=== PATIENT | male | born 1935 | race Caucasian/White ===

== ENCOUNTER 2017-07-20 05:40 | Observation (INO) | payer MEDICARE ==
--- OUTSIDE RECORDS SUMMARY | 2017-07-18 09:18 | XMS REPORT | Clinical Summary ---
Author Author BEVERLY NeolinearSaint Alphons[facility] Medical CenterSeaMicro Plateau Medical [email or web address] County Public Hospital Address Unknown Phone Unavailable Care Team Providers Care Funeral Director'S Assistant Name Role Phone PCP Unavailable Allergies Active Allergy Reactions Severity Noted Date Comments Penicillins 06/29/2017 Per patient interview in pre-op holding area Current Medications Prescription Sig. Disp. Refills Start End Date Status Date atorvastatin (LIPITOR) 80 Take 80 mg by mouth Active MG tablet daily. clopidogrel (PLAVIX) 75 Take 75 mg by mouth Active mg tablet daily. dexlansoprazole 60 mg Take 60 mg by mouth Active capsule daily. metoprolol (TOPROL-XL) 25 Take 25 mg by mouth Active MG 24 hr tablet daily. tamsulosin (FLOMAX) 0.4 Take 0.4 mg by mouth Active mg Cp24 24 hr capsule daily. Active Problems Problem Noted Date Carotid artery stenosis 06/29/2017 Carotid stenosis 06/29/2017 Hypertension 06/29/2017 Hyperlipemia 06/29/2017 GERD (gastroesophageal reflux disease) 06/29/2017 BPH (benign prostatic hyperplasia) 06/29/2017 CAD (coronary artery disease) 06/29/2017 Encounters Date Type Specialty Care Team Description 06/29/2017 Hospital Cardiology Antonio Mcdonough, Essential - Encounter MD hypertension;Coronary 07/01/2017 artery disease of [place] artery of [place] heart with stable angina pectoris (HCC);Bilateral carotid artery stenosis;Other hyperlipidemia 06/29/2017 Anesthesia Vasu Vinson MD Event 06/29/2017 Procedure Pass 06/29/2017 Surgery Antonio Mcdonough, ENDARTERECTOMY,CAROTID MD 06/28/2017 Orders Only Transplant Jennifer Alvarez RN after 07/17/2016 Social History Tobacco Use Types Packs/Day Years Used Date Never Smoker Smokeless Tobacco: Never Used Alcohol Use Drinks/Week oz/Week Comments Yes Sex Assigned at Date Recorded Not on file Last Filed Vital Signs Vital Sign Reading Time Taken Blood Pressure 117/56 07/01/2017 12:00 PM [facility] Pulse 71 07/01/2017 12:00 PM [facility] Temperature 37 C (98.6 F) 07/01/2017 12:00 PM [facility] Respiratory Rate 18 07/01/2017 12:00 PM [facility] Oxygen Saturation 96% 07/01/2017 12:00 PM [facility] Inhaled Oxygen - - Concentration Weight 65.1 kg (143 lb 8 oz) 06/30/2017 4:26 AM [facility] Height 175.3 cm (5' 9") 06/29/2017 5:42 AM [facility] Body Mass Index 21.19 06/30/2017 4:26 AM [facility] Plan of Treatment Not on file Implants Implanted Type Area Brand Ambassador Promotional Model Device Expiration Model / Identifier Date Serial / Lot Grft Hemshld Dbl Roberto 0.3x3.0in Graft/Patc Right: GETINGE 07/11/2021 [id number] - [id number] h Neck IND:MAQUET:CV 090 / Implanted: Qty: 1 on 06/29/2017 by [id number] Antonio Mcdonough MD / [id number] Procedures Procedure Name Priority Date/Time Associated Diagnosis Comments ENDARTERECTOMY,CAROTID 06/29/2017 Stenosis of carotid 8:02 AM [facility] artery, unspecified laterality Special Needs (NEURO-MON ITORING:EE G) after 07/17/2016 Results * RHYTHM STRIP - SCAN (07/04/2017 8:52 AM) * CBC (Hemogram only) (07/01/2017 5:37 AM) Only the most recent of 2 results within the time period is included. Component Value Ref Range WBC 6.5 3.5 - 10.5 K/ L RBC 3.66 (L) 4.63 - 6.08 M/ L Hemoglobin 10.7 (L) 13.7 - 17.5 GM/DL Hematocrit 34.6 (L) 40.1 - 51.0 % MCV 94.5 (H) 79.0 - 92.2 fL MCH 29.2 25.7 - 32.2 pg MCHC 30.9 (L) 32.3 - 36.5 GM/DL RDW 14.6 (H) 11.6 - 14.4 % Platelets 161 150 - 450 K/CU MM MPV 10.7 9.4 - 12.4 fL nRBC 0 0 - 0 /100 WBC Specimen Performing Laboratory Blood - Arm, [place] [address] * Magnesium (07/01/2017 5:37 AM) Only the most recent of 2 results within the time period is included. Component Value Ref Range Magnesium 1.8 1.6 - 2.6 mg/dL Specimen Performing Laboratory Blood - Arm, [place] [address] * Basic Metabolic Panel (07/01/2017 5:37 AM) Only the most recent of 3 results within the time period is included. Component Value Ref Range Sodium 139 136 - 145 meq/L Potassium 3.9 3.5 - 5.1 meq/L Chloride 107 98 - 107 meq/L CO2 23 22 - 29 meq/L BUN 15 7 - 21 mg/dL Creatinine 1.13 0.57 - 1.25 mg/dL Glucose 102 70 - 105 mg/dL Calcium 8.6 8.4 - 10.2 mg/dL EGFR 62Comment: ESTIMATED GFR IS NOT ACCURATE mL/min/1.73 sq m CREATININE CLEARANCE IN PREDICTING GLOMERULAR FILTRATION RATE. ESTIMATED GFR IS NOT APPLICABLE FOR DIALYSIS PATIENTS. Specimen Performing Laboratory Blood - [place], [place] [address] * TRANSFUSION SERVICE REPORT - SCAN (06/30/2017 5:41 PM) * POC-Glucose meter (06/29/2017 9:33 PM) Component Value Ref Range POC-Glucose Meter 127 (H)Comment: TESTED AT [address] 70 - 110 mg /dL [place] [address] Specimen [place] [address] * SHORT LATENCY SEP ALL LIMBS (06/29/2017 10:30 AM) Specimen Performing Laboratory GE RIS Narrative INTRAOPERATIVE MONITORING REPORT Patient Name:Troy Escalona [facility] Surgery Date: 2017 [place] S/N: [id number] Monitoring began at8:10 and ended at 10:30 Surgeon:Antonio Mcdonough M.D. Examining Neurologist:Dario Ross M.D. Monitoring Technologist:MONIE Cee Procedure:Right Carotid Endarterectomy Stimulation Parameters:Ulnar nerves individually stimulated at the wrist Rate 4.7Hz, Intensity 30mA, Duration 0.3ms Filters 30-500Hz, Notch Off Posterior Tibial nerves individually stimulated at the ankle Rate 4.7Hz, Intensity 60mA, Duration 0.3ms Filters 30-500Hz, Notch Off Recording Parameters: C3, C4, CPZ, T3, T4, FP1 and FP2 referenced to FPz Free-running EEG recorded with bipolar derivation, using modified International 10/20 placements:F7-T3,T3-T5, F3-CP3, CP3-P3, F4-CP4, CP4-P4, F8-T4 and T4-T6 Description:Intraoperative neurophysiological monitoring was performed using a combination ofupper and lower extremity somatosensory evoked potentials, and free-running EEG.A real-time connection with the examining neurologist was established and maintained throughout the operative procedure by the monitoring technologist. Upper extremity somatosensory evoked potentials were recorded peripherally at the cortical levels following median nerve stimulation at the wrist. Lower extremity somatosensory evoked potentials were recorded centrally at the cortical level following posterior tibial nerve stimulation at the ankle.No significant surgically related changes in amplitude or latency of the somatosensory evoked responses were noted throughout the surgical procedure. The EEG at baseline was predominantly alpha frequency, symmetric and well-organized. There was no focal slowing. No epileptiform discharges or seizures were recorded. Intraoperatively, there was one instance where the cross-clamp was placed: there was no change from baseline when the clamp was placed nor when the clamp was removed. At closing, free-running EEG remained symmetrical and at baseline frequencies with no focal changes noted to occur throughout the operative procedure. Dario Ross M.D. I65.23 Procedure Note Interface, External Ris In - 07/02/2017 5:56 PM [facility] INTRAOPERATIVE MONITORING REPORT Patient Name: Troy Escalona [facility] Surgery Date: June 29, 2017 [employer] S/N: [id number] Monitoring began at 8:10 and ended at 10:30 Surgeon: Antonio Mcdonough M.D. Examining Neurologist: Dario Ross M.D. Monitoring Technologist: MONIE Cee Procedure: Right Carotid Endarterectomy Stimulation Parameters: Ulnar nerves individually stimulated at the wrist Rate 4.7Hz, Intensity 30mA, Duration 0.3ms Filters 30-500Hz, Notch Off Posterior Tibial nerves individually stimulated at the ankle Rate 4.7Hz, Intensity 60mA, Duration 0.3ms Filters 30-500Hz, Notch Off Recording Parameters: C3, C4, CPZ, T3, T4, FP1 and FP2 referenced to FPz Free-running EEG recorded with bipolar derivation, using modified International 10/20 placements: F7-T3,T3-T5, F3-CP3, CP3-P3, F4-CP4, CP4-P4, F8-T4 and T4-T6 Description: Intraoperative neurophysiological monitoring was performed using a combination of upper and lower extremity somatosensory evoked potentials, and free-running EEG. A real-time connection with the examining neurologist was established and maintained throughout the operative procedure by the monitoring technologist. Upper extremity somatosensory evoked potentials were recorded peripherally at the cortical levels following median nerve stimulation at the wrist. Lower extremity somatosensory evoked potentials were recorded centrally at the cortical level following posterior tibial nerve stimulation at the ankle. No significant surgically related changes in amplitude or latency of the somatosensory evoked responses were noted throughout the surgical procedure. The EEG at baseline was predominantly alpha frequency, symmetric and well-organized. There was no focal slowing. No epileptiform discharges or seizures were recorded. Intraoperatively, there was one instance where the cross-clamp was placed: there was no change from baseline when the clamp was placed nor when the clamp was removed. At closing, free-running EEG remained symmetrical and at baseline frequencies with no focal changes noted to occur throughout the operative procedure. Dario Ross M.D. I65.23 * Tissue Exam (06/29/2017 9:37 AM) Component Value Ref Range Case Report Surgical Pathology Report Case: [id number] Authorizing Provider: Antonio Mcdonough, Collected: 06/29/2017 0937 Ordering Location: [facility] Received: 06/29/2017 1039 PERIOPERATIVE SERVICES Pathologist: Jacob Ochoa MD Specimen: Plaque, right carotid plaque DIAGNOSIS ARTERY, RIGHT CAROTID, ENDARTERECTOMY: CALCIFIC ATHEROSCLEROTIC PLAQUE WITH FOCAL BONY METAPLASIA Signing Pathologist Direct Phone Line: [phone] CPT Code(s) 37931; 86853 CLINICAL HISTORY Stenosis of carotid artery SPECIMEN SOURCE Right carotid plaque GROSS DESCRIPTION In saline labeled "plaque", description "right carotid plaque" are four irregular barboza-white to yellow-snyder rubbery portions of calcified fibrous tissue measuring 4.0 x 2.3 x 0.5 cm in aggregate. Activities Concierge sections are submitted in cassette A1 for decalcification. DB/pl MICROSCOPIC DESCRIPTION Performed Specimen Performing Laboratory [place] [address] * Electrocardiogram, 12-lead (06/29/2017 7:33 AM) Specimen Performing Laboratory GE MUSE Narrative Ventricular Rate 58 BPM Atrial Rate 58 BPM P-R Interval 176 ms QRS Duration 86 ms Q-T Interval 430 ms QTC Calculation(Bazett) 422 ms P [place] 77 degrees R [place] -19 degrees T [place] 14 degrees Sinus bradycardia Possible Anterior infarct , age undetermined Abnormal ECG No previous ECGs available Confirmed by MD SPEARS STEPHANIE A ([id number]) on 06/30/2017 8:02:14 PM Procedure Note Interface, External Ris In - 06/30/2017 8:02 PM [facility] Ventricular Rate 58 BPM Atrial Rate 58 BPM P-R Interval 176 ms QRS Duration 86 ms Q-T Interval 430 ms QTC Calculation(Bazett) 422 ms P [place] 77 degrees R [place] -19 degrees T [place] 14 degrees Sinus bradycardia Possible Anterior infarct , age undetermined Abnormal ECG No previous ECGs available Confirmed by MD SPEARS STEPHANIE A ([id number]) on 06/30/2017 8:02:14 PM * XR chest 1 view portable / bedside (06/29/2017 7:12 AM) Specimen Performing Laboratory GE RIS Narrative FINAL REPORT Chest one view Discussion: There are degenerative spine and shoulder changes. Lungs clear. Heart size normal. No effusion or pneumothorax. Signed: Michelle Guerrero MD Report Verified Date/Time:06/29/2017 07:29:07 Reading Location: [facility] Radiology Reading Room Procedure Note Interface, External Ris In - 06/29/2017 7:31 AM [facility] FINAL REPORT Chest one view Discussion: There are degenerative spine and shoulder changes. Lungs clear. Heart size normal. No effusion or pneumothorax. Signed: Michelle Guerrero MD Report Verified Date/Time: 06/29/2017 07:29:07 Reading Location: [facility] Radiology Reading Room * Type and screen, automated (06/29/2017 6:18 AM) Component Value Ref Range ABO/RH AUTOMATED (BEAKER) A NEGATIVE Ab Scrn NEGATIVE Specimen [place] [address] * CBC with platelet count + automated diff (06/29/2017 6:18 AM) Component Value Ref Range WBC 6.3 3.5 - 10.5 K/ L RBC 3.97 (L) 4.63 - 6.08 M/ L Hemoglobin 11.8 (L) 13.7 - 17.5 GM/DL Hematocrit 37.1 (L) 40.1 - 51.0 % MCV 93.5 (H) 79.0 - 92.2 fL MCH 29.7 25.7 - 32.2 pg MCHC 31.8 (L) 32.3 - 36.5 GM/DL RDW 14.2 11.6 - 14.4 % Platelets 185 150 - 450 K/CU MM MPV 10.0 9.4 - 12.4 fL nRBC 0 0 - 0 /100 WBC % Neutros 64 % % Lymphs 21 % % Monos 12 % % Eos 2 % % Baso 1 % # Neutros 4.08 1.78 - 5.38 K/ L # Lymphs 1.32 1.32 - 3.57 K/ L # Monos 0.76 0.30 - 0.82 K/ L # Eos 0.10 0.04 - 0.54 K/ L # Baso 0.05 0.01 - 0.08 K/ L Immature 0 0 - 1 % Granulocytes-Relative Specimen Performing Laboratory Blood [address] [address] * Prothrombin time/INR (06/29/2017 6:18 AM) Component Value Ref Range Protime 14.4 11.7 - 14.7 seconds INR 1.1 <=5.9 Specimen Performing Laboratory Blood [address] [address] Narrative RECOMMENDED COUMADIN/WARFARIN INR THERAPY RANGES STANDARD DOSE: 2.0 - 3.0 Includes: PROPHYLAXIS for venous thrombosis, systemic embolization; TREATMENT for venous thrombosis and/or pulmonary embolus. HIGH RISK: Target INR is 2.5-3.5 for patients with mechanical heart valves. * CBC with platelet count + automated diff (06/29/2017 6:18 AM) Specimen Performing Laboratory Blood Narrative The following orders were created for panel order CBC with platelet count + automated diff. Procedure Abnormality Status --------- - ------ CBC with platelet count ...[[id number]]AbnormalFinal result Please view results for these tests on the individual orders. after 07/17/2016
--- OUTSIDE RECORDS SUMMARY | 2017-07-18 09:18 | XMS REPORT ---
Author Author [facility] Address Unknown Phone Unavailable Care Team Providers Care Cafe Or Restaurant Manager Name Role Phone DANK CORTES Unavailable Unavailable Problems This patient has no known problems. Allergies, Adverse Reactions, Alerts This patient has no known allergies or adverse reactions. Medications This patient has no known medications. Results Test Description Test Time Test Comments Text Results Atomic Results Result Comments TISSUE EXAM 2017-07-03 13:46:00 Surgical Pathology Report Case: [id number] Authorizing Provider: Dank Cortes, Collected: 06/29/2017 0937 Ordering Location: [facility] Received: 06/29/2017 1039 PERIOPERATIVE SERVICES Pathologist: Jacob Ochoa MD Specimen : Plaque, right carotid plaque ARTERY, RIGHT CAROTID, ENDARTERECTOMY:CALCIFIC ATHEROSCLEROTIC PLAQUE WITH FOCAL BONY METAPLASIA Signing Pathologist Direct Phone Line: [phone] signed by Jacob Ochoa MD on 07/03/2017 at 1:46 [id number]; [id number] of carotid arteryRight carotid plaqueIn saline labeled "plaque", description "right carotid plaque" are four irregular barboza-white to yellow-snyder rubbery portions of calcified fibrous tissue measuring 4.0 x 2.3 x 0.5 cm in aggregate. Transition Rn sections are submitted in cassette A1 for decalcification. DB/plPerformed SHORT-LATENCY SPE, ALL LIMBS 2017-07-02 17:56:00 INTRAOPERATIVE MONITORING REPORT Patient Name: Troy Escalona [facility] Surgery Date: June 29, 2017 [place] S/N : [id number] Monitoring began at 8:10 and ended at 10:30 Surgeon: Dank Cortes M.D. Examining Neurologist: Dario Ross M.D. Monitoring Technologist: MONIE Cee Procedure: Right Carotid Endarterectomy Stimulation Parameters: Ulnar nerves individually stimulated at the wrist Rate 4.7Hz, Intensity 30mA, Duration 0.3ms Filters 30-500Hz, Notch Off Posterior Tibial nerves individually stimulated at the ankle Rate 4.7Hz, Intensity 60mA, Duration 0.3ms Filters 30-500Hz, Notch Off Recording Parameters: C3, C4, CPZ , T3, T4, FP1 and FP2 referenced to FPz Free-running EEG recorded with bipolar derivation, using modified International 10/20 placements: F7-T3,T3-T5, F3-CP3 , CP3-P3, F4-CP4, CP4-P4, F8-T4 and T4-T6 Description: [...] the operative procedure. Dario Ross M.D. I65.23 ESIUM 2017-07-01 07:30:00 MAGNESIUM (BEAKER) (test vaju=540) 1.8 mg/dL 1.6-2.6 BASIC METABOLIC [id number] 07:30:00* Test Item Value Reference Range Comments SODIUM (BEAKER) (test nait=156) 139 meq/L 136-145 POTASSIUM (BEAKER) (test xziu=563) 3.9 meq/L 3.5-5.1 CHLORIDE (BEAKER) (test kxnt=903) 107 meq/L 98-107 CO2 (BEAKER) (test cxif=559) 23 meq/L 22-29 BLOOD UREA NITROGEN (BEAKER) (test kaqw=616) 15 mg/dL 7-21 CREATININE (BEAKER) (test qxvk=150) 1.13 mg/dL 0.57-1.25 GLUCOSE RANDOM (BEAKER) (test odrw=775) 102 mg/dL 70-105 CALCIUM (BEAKER) (test xqka=628) 8.6 mg/dL 8.4-10.2 EGFR (BEAKER) (test eqdo=4929) 62 mL/min/1.73 sq m ESTIMATED GFR IS NOT ACCURATE CREATININE CLEARANCE IN PREDICTING GLOMERULAR FILTRATION RATE. ESTIMATED GFR IS NOT APPLICABLE FOR DIALYSIS PATIENTS. CBC (HEMOGRAM ONLY)2017-07-01 06:36:00* Test Item Value Reference Range Comments WHITE BLOOD CELL COUNT (BEAKER) (test twqn=276) 6.5 K/ L 3.5-10.5 RED BLOOD CELL COUNT (BEAKER) (test xjjx=062) 3.66 M/ L 4.63-6.08 HEMOGLOBIN (BEAKER) (test ibil=406) 10.7 GM/DL 13.7-17.5 HEMATOCRIT (BEAKER) (test wjcb=478) 34.6 % 40.1-51.0 MEAN CORPUSCULAR VOLUME (BEAKER) (test prnn=385) 94.5 fL 79.0-92.2 MEAN CORPUSCULAR HEMOGLOBIN (BEAKER) (test wkhq=051) 29.2 pg 25.7-32.2 MEAN CORPUSCULAR HEMOGLOBIN CONC (BEAKER) (test iqsq=587) 30.9 GM/DL 32.3- 36.5 RED CELL DISTRIBUTION WIDTH (BEAKER) (test gjxa=225) 14.6 % 11.6-14.4 PLATELET COUNT (BEAKER) (test umuo=443) 161 K/CU MM 150-450 MEAN PLATELET VOLUME (BEAKER) (test qetl=351) 10.7 fL 9.4-12.4 NUCLEATED RED BLOOD CELLS (BEAKER) (test jaay=961) 0 /100 WBC 0-0 [id number] 05:54:00* Test Item Value Reference Range Comments MAGNESIUM (BEAKER) (test bwje=350) 1.7 mg/dL 1.6-2.6 BASIC METABOLIC [id number] 05:54:00* Test Item Value Reference Range Comments SODIUM (BEAKER) (test frwr=427) 140 meq/L 136-145 POTASSIUM (BEAKER) (test dzrz=720) 4.3 meq/L 3.5-5.1 CHLORIDE (BEAKER) (test bciq=397) 107 meq/L 98-107 CO2 (BEAKER) (test icgd=869) 26 meq/L 22-29 BLOOD UREA NITROGEN (BEAKER) (test yhug=933) 19 mg/dL 7-21 CREATININE (BEAKER) (test frjb=151) 1.23 mg/dL 0.57-1.25 GLUCOSE RANDOM (BEAKER) (test htar=347) 149 mg/dL 70-105 CALCIUM (BEAKER) (test xiiw=132) 8.7 mg/dL 8.4-10.2 EGFR (BEAKER) (test cqvc=5388) 56 mL/min/1.73 sq m ESTIMATED GFR IS NOT ACCURATE CREATININE CLEARANCE IN PREDICTING GLOMERULAR FILTRATION RATE. ESTIMATED GFR IS NOT APPLICABLE FOR DIALYSIS PATIENTS. CBC (HEMOGRAM ONLY)2017-06-30 05:12:00* Test Item Value Reference Range Comments WHITE BLOOD CELL COUNT (BEAKER) (test cvbj=925) 7.5 K/ L 3.5-10.5 RED BLOOD CELL COUNT (BEAKER) (test qslz=142) 4.15 M/ L 4.63-6.08 HEMOGLOBIN (BEAKER) (test covc=610) 12.0 GM/DL 13.7-17.5 HEMATOCRIT (BEAKER) (test ltiu=076) 39.3 % 40.1-51.0 MEAN CORPUSCULAR VOLUME (BEAKER) (test dudt=498) 94.7 fL 79.0-92.2 MEAN CORPUSCULAR HEMOGLOBIN (BEAKER) (test jykp=780) 28.9 pg 25.7-32.2 MEAN CORPUSCULAR HEMOGLOBIN CONC (BEAKER) (test come=027) 30.5 GM/DL 32.3- 36.5 RED CELL DISTRIBUTION WIDTH (BEAKER) (test wimd=254) 14.4 % 11.6-14.4 PLATELET COUNT (BEAKER) (test clje=799) 184 K/CU MM 150-450 MEAN PLATELET VOLUME (BEAKER) (test qzch=028) 10.6 fL 9.4-12.4 NUCLEATED RED BLOOD CELLS (BEAKER) (test yldv=186) 0 /100 WBC 0-0 POCT-GLUCOSE [id number] 21:45:00* Test Item Value Reference Range Comments POC-GLUCOSE METER (BEAKER) (test pvfg=3100) 127 mg/dL 70-110 TESTED AT [facility] [address] [facility] [address] RAD, CHEST, 1 VIEW, NON [id number] 07:29:00Reason for exam:->cv pre opShould this be performed at the bedside?->YesFINAL REPORT Chest one view Discussion: There are degenerative spine and shoulder changes. Lungs clear. Heart size normal. No effusion or pneumothorax. Signed: Michelle Guerrero Verified Date/Time: 06/29/2017 07:29:07 Reading Location : [facility] Radiology Reading Room C METABOLIC [id number] 07:11:00* Test Item Value Reference Range Comments SODIUM (BEAKER) (test pbvx=221) 143 meq/L 136-145 POTASSIUM (BEAKER) (test qhco=443) 4.8 meq/L 3.5-5.1 CHLORIDE (BEAKER) (test oflr=370) 108 meq/L 98-107 CO2 (BEAKER) (test fthy=215) 27 meq/L 22-29 BLOOD UREA NITROGEN (BEAKER) (test lnmx=881) 19 mg/dL 7-21 CREATININE (BEAKER) (test bemv=205) 1.28 mg/dL 0.57-1.25 GLUCOSE RANDOM (BEAKER) (test uluh=552) 100 mg/dL 70-105 CALCIUM (BEAKER) (test qgaj=223) 9.1 mg/dL 8.4-10.2 EGFR (BEAKER) (test lehj=8313) 54 mL/min/1.73 sq m ESTIMATED GFR IS NOT ACCURATE CREATININE CLEARANCE IN PREDICTING GLOMERULAR FILTRATION RATE. ESTIMATED GFR IS NOT APPLICABLE FOR DIALYSIS PATIENTS. PROTHROMBIN TIME/[id number] 06:51:00* Test Item Value Reference Range Comments PROTIME (BEAKER) (test pfdq=771) 14.4 seconds 11.7-14.7 INR (BEAKER) (test zdvt=036) 1.1 <=5.9 RECOMMENDED COUMADIN/WARFARIN INR THERAPY RANGESSTANDARD DOSE: 2.0 - 3.0 Includes: PROPHYLAXIS for venous thrombosis, systemic embolization; TREATMENT for venous thrombosis and/or pulmonary embolus.HIGH RISK: Target INR is 2.5-3.5 for patients with mechanical heart valves.CBC W/PLT COUNT & AUTO [id number] 06:42:00* Test Item Value Reference Range Comments WHITE BLOOD CELL COUNT (BEAKER) (test cooe=481) 6.3 K/ L 3.5-10.5 RED BLOOD CELL COUNT (BEAKER) (test bswo=161) 3.97 M/ L 4.63-6.08 HEMOGLOBIN (BEAKER) (test mckw=527) 11.8 GM/DL 13.7-17.5 HEMATOCRIT (BEAKER) (test jqaj=887) 37.1 % 40.1-51.0 MEAN CORPUSCULAR VOLUME (BEAKER) (test vqat=418) 93.5 fL 79.0-92.2 MEAN CORPUSCULAR HEMOGLOBIN (BEAKER) (test aszh=568) 29.7 pg 25.7-32.2 MEAN CORPUSCULAR HEMOGLOBIN CONC (BEAKER) (test rcjz=395) 31.8 GM/DL 32.3- 36.5 RED CELL DISTRIBUTION WIDTH (BEAKER) (test uxzo=699) 14.2 % 11.6-14.4 PLATELET COUNT (BEAKER) (test vilf=797) 185 K/CU MM 150-450 MEAN PLATELET VOLUME (BEAKER) (test vgef=383) 10.0 fL 9.4-12.4 NUCLEATED RED BLOOD CELLS (BEAKER) (test eoei=305) 0 /100 WBC 0-0 NEUTROPHILS RELATIVE PERCENT (BEAKER) (test sdto=770) 64 % LYMPHOCYTES RELATIVE PERCENT (BEAKER) (test zcdb=083) 21 % MONOCYTES RELATIVE PERCENT (BEAKER) (test eekw=645) 12 % EOSINOPHILS RELATIVE PERCENT (BEAKER) (test kpud=186) 2 % BASOPHILS RELATIVE PERCENT (BEAKER) (test rias=952) 1 % NEUTROPHILS ABSOLUTE COUNT (BEAKER) (test egjt=009) 4.08 K/ L 1.78-5.38 LYMPHOCYTES ABSOLUTE COUNT (BEAKER) (test fkmt=574) 1.32 K/ L 1.32-3.57 MONOCYTES ABSOLUTE COUNT (BEAKER) (test zxfd=337) 0.76 K/ L 0.30-0.82 EOSINOPHILS ABSOLUTE COUNT (BEAKER) (test barh=854) 0.10 K/ L 0.04-0.54 BASOPHILS ABSOLUTE COUNT (BEAKER) (test sfjs=338) 0.05 K/ L 0.01-0.08 IMMATURE GRANULOCYTES-RELATIVE PERCENT (BEAKER) (test htct=9570) 0 % 0-1
[2017-07-18 10:42] LABS: BASOPHILS % 0.7 % (0.0-1.0); EOSINOPHILS # (AUTO) 0.1 (0.0-0.4); EOSINOPHILS % 2.3 % (0.0-6.0); HEMATOCRIT 36.1 % (38.2-49.6); HEMOGLOBIN 11.6 g/dL (14.0-18.0); LYMPHOCYTES # (AUTO) 1.4 (1.0-3.2); LYMPHOCYTES % 23.1 % (18.0-39.1); MEAN CORPUSCULAR HEMOGLOBIN 30.1 pg (28-32); MEAN CORPUSCULAR HGB CONC 32.1 g/dL (31-35); MEAN CORPUSCULAR VOLUME 93.5 fL (81-99); MONOCYTES # (AUTO) 0.8 (0.2-0.8); MONOCYTES % 13.1 % (4.4-11.3); NEUTROPHILS # (AUTO) 3.7 (2.1-6.9); NEUTROPHILS % 60.6 % (38.7-80.0); PLATELET COUNT 228 x10e3/uL (140-360); RED BLOOD COUNT 3.86 x10e6/uL (4.3-5.7); RED CELL DISTRIBUTION WIDTH 14.5 % (11.7-14.4)
[2017-07-18 10:52] LABS: INR 1.03; PROTHROMBIN TIME 12.7 seconds (11.9-14.5)
[2017-07-18 11:00] LABS: ALBUMIN 3.7 g/dL (3.5-5.0); ALBUMIN/GLOBULIN RATIO 1.3 (0.8-2.0); ANION GAP 13.1 mmol/L (8-16); CALCIUM 9.2 mg/dL (8.4-10.2); CHOL/HDL RATIO 2.7 (3.9-4.7); CREATININE, SERUM 1.25 mg/dL (0.72-1.25); POTASSIUM 5.1 mmol/L (3.5-5.1)
[~2017-07-20] VITALS: Ht 175.3 cm; Wt 65.8 kg
[2017-07-20] VITALS (7 sets, daily range): BP systolic 130–167; BP diastolic 48–79
[~2017-07-20 05:40] MED LIST: ASPIRIN81 MG PO; ATORVASTATIN CA20 MG PO; CLOPIDOGREL75 MG PO; DOXAZOSIN MESYLA2 MG PO; FERROUS SULFAT325 MG PO; FLOMAX0.4 MG PO; METOPROLOL SUCC25 MG PO; XANAX0.25 MG PO
[2017-07-20] MEDS ORDERED: IOPAMIDOL 370 MG/ML 200 ML INFUS..BTL INJ ONE ×2 (08:45→09:41)
[2017-07-20] MEDS ORDERED: LIDOCAINE HCL 2% LOCAL 20 ML VIAL ONE (08:45)
[2017-07-20] MEDS ORDERED: FENTANYL CITRATE/PF 100MCG/2 ML INJ ONE (08:45)
[2017-07-20] MEDS ORDERED: MIDAZOLAM HCL 2 MG/2 ML VIAL ONE (08:45)
[2017-07-20] MEDS ORDERED: SODIUM CHLORIDE 0.9% 1000ML 1,000 ML ONE (08:45)
[2017-07-20] MEDS ORDERED: HEPARIN SOD/SOD CHLORIDE 2,000 ML ONE (08:45)
[2017-07-20] MEDS ORDERED: ASPIRIN 325 MG TAB ONE (08:51)
[2017-07-20] MEDS ORDERED: BIVALIRUDIN 250 MG/VIAL IV ONE (09:29)
[2017-07-20] MEDS ORDERED: SODIUM CHLORIDE 0.9% 50ML 50 ML ONE (09:30)
[2017-07-20] MEDS ORDERED: CLOPIDOGREL BISULFATE 75 MG TAB ONE ×2 (09:40)
[2017-07-20] MEDS ORDERED: ATROPINE SULFATE 0.1 MG/ML 10ML SYR ONE (09:47)
[2017-07-20] MEDS ORDERED: SODIUM CHLORIDE 0.9% 1000ML 1,000 ML IV ONE (14:30)
[2017-07-20] MEDS ORDERED: METOPROLOL SUCCINATE 25 MG TAB XL PO SCH (21:00)
[2017-07-20] MEDS ORDERED: ATORVASTATIN 20 MG TAB PO SCH (21:00)
[2017-07-20] MEDS ORDERED: ATORVASTATIN 40 MG TAB PO SCH (21:00)
[2017-07-21] MEDS ORDERED: ASPIR 8181 MG (00:06)
[2017-07-21] MEDS ORDERED: LIPITOR20 MG (00:07)
[2017-07-21 04:41] VITALS: BP 124/67
[2017-07-21] MEDS ORDERED: CLOPIDOGREL BISULFATE 75 MG TAB PO SCH (09:00)
[2017-07-21] MEDS ORDERED: ASPIRIN 81 MG CHEW TAB PO SCH (09:00)
--- NOTE | 2017-08-21 13:31 | Discharge Summary ---
REASON FOR ADMISSION: Patient is status post RCA PCI, observation overnight. PROCEDURE PERFORMED: Right coronary artery drug-eluting stent percutaneous coronary intervention. CONDITION UPON DISCHARGE: Fair and improved. DISPOSITION: Discharged to home self-care with access site precautions. MEDICATIONS UPON DISCHARGE: Please see medication reconciliation form. ADMITTING DIAGNOSES 1. Coronary artery disease with stable angina pectoris. 2. Carotid artery disease, status post bilateral carotid endarterectomies. 3. Hypertension. 4. Dyslipidemia. 5. Paroxysmal atrial fibrillation. 6. Peripheral arterial disease. DISCHARGE DIAGNOSES 1. Coronary artery disease with stable angina pectoris. 2. Carotid artery disease, status post bilateral carotid endarterectomies. 3. Hypertension. 4. Dyslipidemia. 5. Paroxysmal atrial fibrillation. 6. Peripheral arterial disease. HOSPITALIZATION SUMMARY: The patient underwent staged elective RCA drug-eluting stent PCI with no complications. Postoperatively, the patient recovered well with no issues. Discharged home on medications as per EMR. Follow up with Robles Pinzon in 2 weeks post discharge. ROBLES JOVEL MD Job#: [id number]
--- NOTE | 2017-08-21 13:45 | Operative Report ---
DATE OF PROCEDURE: July 20, 2017 PROCEDURE INDICATION: RCA drug-eluting stent PCI for angina pectoris, CCS-III. PROCEDURE COMPLICATIONS: None. ESTIMATED BLOOD LOSS: Less than 15 mL. PROCEDURE SUMMARY: After consent was obtained, patient was prepped and draped in a sterile fashion and the right femoral site was locally infiltrated with 2% lidocaine. Access was obtained, and additional angiography was performed with a JL-4 and JR-4 6-Hungarian catheters to engage respectively the left main and the right coronary artery for angiography in multiple views. A JL-4 with side holes guide catheter 6-Hungarian was used for engagement of the right coronary artery after pullback across the aortic valve for hemodynamic measurements demonstrating an LV pressure of 147/5 with an end-diastolic pressure of 13 and an aortic pressure of 145/48 and a heart rate of 58. After administration of anticoagulation with Angiomax, aspirin and Plavix preloading, a Runthrough wire was advanced across the lesion of the RCA, a 2.25 x 12 Emerge balloon inflated to 18 atmospheres across the target lesion and again at 12 atmospheres. A Synergy 2.25 x 28 drug-eluting stent was then deployed across the target lesion to 18 atmospheres. An additional 2.25 x 20 Synergy drug-eluting stent was placed in overlapping fashion to 20 atmospheres and the overlapping area postdilated to 18 atmospheres with a 2.25 balloon. An additional NC Quantum 2.5 x 15 was advanced and used to perform postdilatation at 12 to 14 atmospheres across the treated area. Final angiography reveals excellent results, less than 10% residual stenosis across the treated lesion, RACHEL 3 flow, no dissections, no perforations. ANGIOGRAPHIC FINDINGS: The left main with 30% stenosis and heavy calcifications. The LAD has 50% proximal stenosis. First diagonal has 60% mid stenosis. Mid LAD had 50% stenosis. The second diagonal has 60% stenosis. The circumflex has three obtuse marginals, the first of which has 50% proximal stenosis. The circumflex prior to a third obtuse marginal has 40% stenosis. The right coronary artery has proximal 70% diffuse stenosis and mid 70% stenosis and an additional 30% stenosis. The areas of 70% stenosis were appropriately treated with a drug-eluting stent as previously described above. The LV systolic function was normal with normal regional wall motion and left ventricular ejection fraction of 60% to 65%. CONCLUSIONS: Successful right coronary artery drug-eluting stent percutaneous coronary intervention using Synergy drug-eluting stents. RECOMMENDATIONS: Aspirin and Plavix for now. On followup will resume anticoagulation for AFib. Monitor overnight for post-PCI complications with plan for discharge in the morning. Job#: [id number] EV
== END 2017-07-21 07:17 | disposition home or self-care (01) ==
LOC: CATH LAB 05:40 → IMCU 14:23
PROVIDERS: ADMIT Internal Medicine Cardiovascular Disease; ATTEND Internal Medicine Cardiovascular Disease
DX: I25.118 Atherosclerotic heart disease of native coronary artery with other forms of angina pectoris (principal); I65.29 Occlusion and stenosis of unspecified carotid artery; I10 Essential (primary) hypertension; E78.5 Hyperlipidemia, unspecified; I48.0 Paroxysmal atrial fibrillation; I73.9 Peripheral vascular disease, unspecified; Z01.810 Encounter for preprocedural cardiovascular examination; Z01.812 Encounter for preprocedural laboratory examination; Z79.02 Long term (current) use of antithrombotics/antiplatelets
CPT/HCPCS: 93458; C9600; 36140; 36415; 77002; 80053; 80061; 85025; 85610; 92920; 93005; 93452; C1766; C1769; C1874; G0378; J0583; J2001; J2250; J7030; Q9967

== ENCOUNTER 2017-10-05 08:13 | Emergency (ER) | payer MEDICARE ==
[~2017-10-05] VITALS: Ht 175.3 cm; Wt 68.0 kg
[~2017-10-05 08:13] MED LIST changes: +ASPIR 8181 MG; +LIPITOR20 MG
--- OUTSIDE RECORDS SUMMARY | 2017-10-05 08:17 | XMS REPORT | Continuity of Care Document ---
Author Author [facility] Organization [facility] Address [address] [place] [address] Phone Unavailable Care Team Providers Care Sales Representative Jewelry Name Role Phone SPENSER HORNER MD PCP Insurance Providers Guarantor Troy Escalona Jr Address [address] [place] [address] Email [email or web address] Payer [facility] Policy Number [id number] Subscriber's Name Troy sEcalona Jr Relationship 18 Self / Same As Patient Group Number PLANC Group Name RETIRED Effective Date 17 Payer Medicare A & B Policy Number [id number] Subscriber's Name Troy Escalona Jr Relationship 18 Self / Same As Patient Group Number [id number] Group Name RETIRED Effective Date 98 Advance Directives Directive Response Recorded Date/Time Does the patient have an advance directive? No 07/20/17 3:00pm If yes, is advance directive on file with [facility]? No 01/29/17 12:18pm If not on file with [facility] will patient provide a copy? Yes 07/18/17 9:14am Do you have a Directive to Physician? Yes 07/18/17 9:14am Do you have a Medical Power of Potato Chip Cooker Machine? Yes 07/18/17 9:14am Do you have an out of hospital Do Not Resuscitate Order? Yes 07/18/17 9:14am Do you have any special needs we should be aware of? No 07/18/17 9:14am Do you have a support person here with you today? No 07/18/17 9:14am Did patient receive Notice of Privacy Practices? Yes 07/18/17 9:14am Did patient receive patient rights and responsibilities? Yes 07/18/17 9:14am Problems Medical Problem Onset Date Status TIA (transient ischemic attack) 05/25/2014 Acute Medications Current Home Medications Medication Dose Units Route Directions Days Qty Instructions Start Date Aspirin (Aspir 81) 81 Mg Tablet. Atorvastatin Calcium (Lipitor) 20 Mg Tablet 20 Mg Daily 30 Tab Clopidogrel Bisulfate (Clopidogrel) 75 Mg Tablet 75 Mg Oral Daily 30 Tab Metoprolol Succinate 25 Mg Tab.er.24h 12.5 Mg Oral Daily Tamsulosin Hcl (Flomax*) 0.4 Mg Cap 0.4 Mg Oral Daily 30 Cap Tamsulosin Hcl (Flomax*) 0.4 Mg Cap 0.4 Mg Oral Daily 30 Cap Past Home Medications Medication Directions Ordered Status Alprazolam (Xanax) 0.25 Mg Tablet, Mg Oral Bedtime Discontinued Aspirin 81 Mg Tab.chew, 81 Mg Oral Daily Discontinued Atorvastatin Calcium 20 Mg Tablet, 80 Mg Oral Bedtime Discontinued Doxazosin Mesylate 2 Mg Tablet, 2 Mg Oral Daily Discontinued Ferrous Sulfate 325 Mg Tablet, 1 Tab Oral Three Times A Day Discontinued Social History Social History Problem Response Recorded Date/Time Onset Date Status Hx Psychiatric Problems No 07/20/2017 3:00pm Not Applicable Not Applicable Hx Substance Use Disorder No 07/18/2017 10:34am Not Applicable Not Applicable Hx Alcohol Use No 07/18/2017 10:34am Not Applicable Not Applicable Hospital Discharge Instructions No hospital discharge instruction information available. Plan of Care Discharge Date 07/21/17 7:17am Disposition HOME, SELF-CARE Instructions/Education Provided Chest Pain - Chest Wall Cardiac Disease Risk Factors Hypertension Prescriptions See Medication Section Additional Instructions/Education Follow up on 06 [address] Jeromy Toney. [facility] diet and activity as tolerated. Functional Status Query Response Date Recorded Assistive Devices None July 20, 2017 4:00pm Ambulation Ability Independent July 20, 2017 4:00pm Toileting Ability Independent July 20, 2017 4:00pm Allergies, Adverse Reactions, Alerts Allergen Type Severity Reaction Status Last Updated Penicillin Allergy Unknown Rash Active 12/28/16 Immunizations No immunization information available. Vital Signs Acute Vital Signs Vital Response Date/Time Temperature (Fahrenheit) 96.9 degrees F (97.6 - 99.5) 07/21/2017 4:41am Pulse Pulse Rate (adult) 57 bpm (60 - 90) 07/21/2017 4:41am Respiratory Rate 16 bpm (12 - 24) 07/21/2017 4:41am Blood Pressure 124/67 mm Hg 07/21/2017 4:41am Height 5 ft 9 in 07/18/2017 10:34am Weight 145 lb 07/18/2017 10:34am Body Mass Index 21.4 kg/m^2 07/20/2017 3:00pm Results Laboratory Results Test Name Result Units Flags Reference Collection Date/Time Result Date/ Time Comments Iron Level 19 ug/dL L 65-175 11/22/2016 10:27am 11/22/2016 11:07am Total Iron Binding Capacity 342 ug/dL 261-478 11/22/2016 10:27am 2016 11:07am Percent Iron Saturation 6 % L 15-50 11/22/2016 10:27am 11/22/2016 11: 07am Transferrin 244 mg/dL 174-364 11/22/2016 10:27am 11/22/2016 11:07am Ferritin 20.63 ng/mL L 21.81-274.66 11/22/2016 10:27am 11/22/2016 11: 27am White Blood Count 6.10 x10e3/uL 4.8-10.8 07/18/2017 10:37am 07/18/2017 10:47am Red Blood Count 3.86 x10e6/uL L 4.3-5.7 07/18/2017 10:37am 07/18/2017 10 :47am Hemoglobin 11.6 g/dL L 14.0-18.0 07/18/2017 10:37am 07/18/2017 10:47am Hematocrit 36.1 % L 38.2-49.6 07/18/2017 10:37am 07/18/2017 10:47am Mean Corpuscular Volume 93.5 fL 81-99 07/18/2017 10:37am 07/18/2017 10: 47am Mean Corpuscular Hemoglobin 30.1 pg 28-32 07/18/2017 10:37am 2017 10:47am Mean Corpuscular Hemoglobin Concent 32.1 g/dL 31-35 07/18/2017 10:37am 07/18/2017 10:47am Red Cell Distribution Width 14.5 % H 11.7-14.4 07/18/2017 10:37am 2017 10:47am Platelet Count 228 x10e3/uL 140-360 07/18/2017 10:37am 07/18/2017 10: 47am Neutrophils (%) (Auto) 60.6 % 38.7-80.0 07/18/2017 10:37am 07/18/2017 10:47am Lymphocytes (%) (Auto) 23.1 % 18.0-39.1 07/18/2017 10:37am 07/18/2017 10:47am Monocytes (%) (Auto) 13.1 % H 4.4-11.3 07/18/2017 10:37am 07/18/2017 10 :47am Eosinophils (%) (Auto) 2.3 % 0.0-6.0 07/18/2017 10:37am 07/18/2017 10: 47am Basophils (%) (Auto) 0.7 % 0.0-1.0 07/18/2017 10:37am 07/18/2017 10: 47am IM GRANULOCYTES % 0.2 % 0.0-1.0 07/18/2017 10:37am 07/18/2017 10:47am Neutrophils # (Auto) 3.7 2.1-6.9 07/18/2017 10:37am 07/18/2017 10: 47am Lymphocytes # (Auto) 1.4 1.0-3.2 07/18/2017 10:37am 07/18/2017 10: 47am Monocytes # (Auto) 0.8 0.2-0.8 07/18/2017 10:37am 07/18/2017 10:47am Eosinophils # (Auto) 0.1 0.0-0.4 07/18/2017 10:37am 07/18/2017 10: 47am Basophils # (Auto) 0.0 0.0-0.1 07/18/2017 10:37am 07/18/2017 10:47am Absolute Immature Granulocyte (auto 0.01 x10e3/uL 0-0.1 07/18/2017 10: 37am 07/18/2017 10:47am Prothrombin Time 12.7 seconds 11.9-14.5 07/18/2017 10:37am 07/18/2017 10:55am Prothromb Time International Ratio 1.03 07/18/2017 10:37am 2017 10:55am Oral Anticoagulant Therapy INR Values: 1. Low Intensity Therapy 1.5 - 2.0 2. Moderate Intensity Therapy 2.0 - 3.0 3. High Intensity Therapy(1) 2.5 - 3.5 4. High Intensity Therapy(2) 3.0 - 4.0 5. Panic Value INR > 5.0 Sodium Level 142 mmol/L 136-145 07/18/2017 10:37am 07/18/2017 11:00am Potassium Level 5.1 mmol/L 3.5-5.1 07/18/2017 10:37am 07/18/2017 11: 00am Chloride Level 105 mmol/L 98-107 07/18/2017 10:37am 07/18/2017 11:00am Carbon Dioxide Level 29 mmol/L 22-29 07/18/2017 10:37am 07/18/2017 11: 00am Anion Gap 13.1 mmol/L 8-16 07/18/2017 10:37am 07/18/2017 11:00am Blood Urea Nitrogen 22 mg/dL 7-26 07/18/2017 10:37am 07/18/2017 11: 00am Creatinine 1.25 mg/dL 0.72-1.25 07/18/2017 10:37am 07/18/2017 11:00am BUN/Creatinine Ratio 18 6-25 07/18/2017 10:37am 07/18/2017 11:00am Estimat Glomerular Filtration Rate 55 ML/MIN L 60- 07/18/2017 10:37am 11:00am Ranges were taken from the National Kidney Disease Education Program and the National Kidney Foundation literature. Reference ranges: 60 or greater: Normal 16-59 (for 3 consecutive months): Chronic kidney disease 15 or less: Kidney failure Glucose Level 92 mg/dL 74-118 07/18/2017 10:37am 07/18/2017 11:00am Calcium Level 9.2 mg/dL 8.4-10.2 07/18/2017 10:37am 07/18/2017 11:00am Total Bilirubin 0.9 mg/dL 0.2-1.2 07/18/2017 10:37am 07/18/2017 11: 00am Aspartate Amino Transf (AST/SGOT) 18 IU/L 5-34 07/18/2017 10:37am 07/18 11:00am Alanine Aminotransferase (ALT/SGPT) 11 IU/L 0-55 07/18/2017 10:37am 11/2017 11:00am Total Protein 6.6 g/dL 6.5-8.1 07/18/2017 10:37am 07/18/2017 11:00am Albumin 3.7 g/dL 3.5-5.0 07/18/2017 10:37am 07/18/2017 11:00am Globulin 2.9 g/dL 2.3-3.5 07/18/2017 10:37am 07/18/2017 11:00am Albumin/Globulin Ratio 1.3 0.8-2.0 07/18/2017 10:37am 07/18/2017 11: 00am Alkaline Phosphatase 40 IU/L 40-150 07/18/2017 10:37am 07/18/2017 11: 00am Triglycerides Level 82 MG/DL 0-149 07/18/2017 10:37am 07/18/2017 11: 00am Cholesterol Level 140 MD/DL 0-199 07/18/2017 10:37am 07/18/2017 11: 00am Less than 200 mg/dL Low Risk 201 - 239 mg/dL Borderline Risk 240 mg/dl and greater High Risk LDL Cholesterol 73 MG/DL 60-130 07/18/2017 10:37am 07/18/2017 11:00am HDL Cholesterol 51 MG/DL 40-60 07/18/2017 10:37am 07/18/2017 11:00am Cholesterol/HDL Ratio 2.7 L 3.9-4.7 07/18/2017 10:37am 07/18/2017 11: 00am Procedures No procedure information available. Encounters Encounter Location Arrival/Admit Date Discharge/Depart Date Attending Provider Discharged Inpatient (obs) [facility] 07/20/17 2:23pm 02/28 7:17am COURTNEY ZHENG MD Discharged Recurring [facility] 02/13/17 9:54am 03/13/17 11:59pm CHAGO CM MD Discharged Recurring [facility] 01/31/17 8:48am 02/10/17 11:59pm CHAGO CM MD Departed Emergency Room [facility] 12/28/16 9:36am 11:16am TRACY SOLIZ MD Registered Surgical Day Care [facility] 11/22/16 6:27am COURTNEY ZHENG MD
--- OUTSIDE RECORDS SUMMARY | 2017-10-05 08:17 | XMS REPORT | Clinical Summary ---
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);Bilateral carotid artery stenosis;Other hyperlipidemia 06/29/2017 Anesthesia Vasu Vinson MD Event 06/29/2017 Procedure Pass 06/29/2017 Surgery Antonio Mcdonough, ENDARTERECTOMY,CAROTID MD 06/28/2017 Orders Only Transplant Jennifer Alvarez RN after 10/04/2016 Social History Tobacco Use Types Packs/Day Years Used Date Never Smoker Smokeless Tobacco: Never Used Alcohol Use Drinks/Week oz/Week Comments Yes Sex Assigned at Date Recorded Not on file Last Filed Vital Signs Vital Sign Reading Time Taken Blood Pressure 117/56 07/01/2017 12:00 PM DIRECT ENTRY MIDWIFE Pulse 71 07/01/2017 12:00 PM DIRECT ENTRY MIDWIFE Temperature 37 C (98.6 F) 07/01/2017 12:00 PM DIRECT ENTRY MIDWIFE Respiratory Rate 18 07/01/2017 12:00 PM DIRECT ENTRY MIDWIFE Oxygen Saturation 96% 07/01/2017 12:00 PM DIRECT ENTRY MIDWIFE Inhaled Oxygen - - Concentration Weight 65.1 kg (143 lb 8 oz) 06/30/2017 4:26 AM DIRECT ENTRY MIDWIFE Height 175.3 cm (5' 9") 06/29/2017 5:42 AM DIRECT ENTRY MIDWIFE Body Mass Index 21.19 06/30/2017 4:26 AM DIRECT ENTRY MIDWIFE Plan of Treatment Not on file Implants Implanted Type Area Insurance Counselor Device Expiration Model / Identifier Date Serial / Lot Grft Hemshld Dbl Roberto 0.3x3.0in Graft/Patc Right: GETINGE 07/11/2021 [id number] - [id number] h Neck IND:MAQUET:CV 090 / Implanted: Qty: 1 on 06/29/2017 by [id number] Antonio Mcdonough MD / [id number] Procedures Procedure Name Priority Date/Time Associated Diagnosis Comments ENDARTERECTOMY,CAROTID 06/29/2017 Stenosis of carotid 8:02 AM DIRECT ENTRY MIDWIFE artery, unspecified laterality Special Needs (NEURO-MON ITORING:EE G) after 10/04/2016 Results * RHYTHM STRIP - SCAN (07/19/2017 12:40 PM) Only the most recent of 2 results within the time period is included. * CBC (Hemogram only) (07/01/2017 5:37 AM) [...] WBC Specimen Performing Laboratory [facility], [place] [address] * Magnesium (07/01/2017 5:37 AM) Only the most recent of 2 results within the time period is included. Component Value Ref Range Magnesium 1.8 1.6 - 2.6 mg/dL Specimen Performing Laboratory [facility], [place] [address] * Basic Metabolic Panel (07/01/2017 5:37 AM) [...] PATIENTS. Specimen Performing Laboratory [facility], [place] [address] * TRANSFUSION SERVICE REPORT - SCAN (06/30/2017 5:41 PM) * POC-Glucose meter (06/29/2017 9:33 PM) Component Value Ref Range POC-Glucose Meter 127 (H)Comment: TESTED AT [address] 70 - 110 mg /dL [place] [address] Specimen [place] [address] * SHORT LATENCY SEP ALL LIMBS (06/29/2017 10:30 AM) Specimen Performing Laboratory GE RIS Narrative INTRAOPERATIVE MONITORING REPORT Patient Name:Troy Escalona [facility] Surgery Date: 2017 [employer] S/N: [id number] Monitoring began at8:10 and ended at 10:30 [...] External Ris In - 07/02/2017 5:56 PM DIRECT ENTRY MIDWIFE INTRAOPERATIVE MONITORING REPORT Patient Name: Troy Escalona [facility] Surgery Date: June 29, 2017 [employer] S/N: [id number] Monitoring began at 8:10 and ended at [...] Range Case Report Surgical Pathology Report Case: [id number] Authorizing Provider: Antonio Mcdonough, Collected: 06/29/2017 0937 Ordering Location: [facility] Received: 06/29/2017 1039 PERIOPERATIVE SERVICES Pathologist: Jacob Ochoa MD Specimen: Plaque, right carotid plaque DIAGNOSIS ARTERY, RIGHT CAROTID, ENDARTERECTOMY: CALCIFIC ATHEROSCLEROTIC PLAQUE WITH FOCAL BONY METAPLASIA Signing Pathologist Direct Phone Line: [phone] CPT Code(s) 23773; 19110 CLINICAL HISTORY Stenosis of carotid artery SPECIMEN SOURCE Right carotid plaque GROSS DESCRIPTION In saline labeled "plaque", description "right carotid plaque" are four irregular barboza-white to yellow-snyder rubbery portions of calcified fibrous tissue measuring 4.0 x 2.3 x 0.5 cm in aggregate. Product Development Coordinator sections are submitted in cassette A1 for decalcification. DB/pl MICROSCOPIC DESCRIPTION Performed Specimen Performing Laboratory [place] [address] * Electrocardiogram, 12-lead (06/29/2017 7:33 AM) Specimen Performing Laboratory GE MUSE Narrative Ventricular Rate 58 BPM Atrial Rate 58 BPM P-R Interval 176 ms QRS Duration 86 ms Q-T Interval 430 ms QTC Calculation(Bazett) 422 ms P [place] 77 degrees R [place] -19 degrees T [place] 14 degrees Sinus bradycardia Possible Anterior infarct , age undetermined Abnormal ECG No previous ECGs available Confirmed by MD SPEARS STEPHANIE A ([id number]) on 06/30/2017 8:02:14 PM Procedure Note Interface, External Ris In - 06/30/2017 8:02 PM DIRECT ENTRY MIDWIFE Ventricular Rate 58 BPM Atrial Rate 58 BPM P-R Interval 176 ms QRS Duration 86 ms Q-T Interval 430 ms QTC Calculation(Bazett) 422 ms P [place] 77 degrees R [place] -19 degrees T [place] 14 degrees Sinus bradycardia Possible Anterior infarct , age undetermined Abnormal ECG No previous ECGs available Confirmed by MD SPEARS STEPHANIE A ([id number]) on 06/30/2017 8:02:14 PM * XR chest 1 view portable / bedside (06/29/2017 7:12 AM) Specimen Performing Laboratory GE RIS Narrative FINAL REPORT Chest one view Discussion: There are degenerative spine and shoulder changes. Lungs clear. Heart size normal. No effusion or pneumothorax. Signed: Michelle Guerrero MD Report Verified Date/Time:06/29/2017 07:29:07 Reading Location: [facility] Radiology Reading Room Procedure Note Interface, External Ris In - 06/29/2017 7:31 AM DIRECT ENTRY MIDWIFE FINAL REPORT Chest one view Discussion: There are degenerative spine and shoulder changes. Lungs clear. Heart size normal. No effusion or pneumothorax. Signed: Michelle Guerrero MD Report Verified Date/Time: 06/29/2017 07:29:07 Reading Location: [facility] Radiology Reading Room * Type and screen, automated (06/29/2017 6:18 AM) Component Value Ref Range ABO/RH AUTOMATED (BEAKER) A NEGATIVE Ab Scrn NEGATIVE Specimen Performing Laboratory Blood [facility] [address] [address] * CBC with platelet count + automated [...] 1 % Granulocytes-Relative Specimen Performing Laboratory Blood [address] [address] * Prothrombin time/INR (06/29/2017 6:18 AM) Component Value Ref Range Protime 14.4 11.7 - 14.7 seconds INR 1.1 <=5.9 Specimen Performing Laboratory Blood [address] [address] Narrative RECOMMENDED COUMADIN/WARFARIN INR THERAPY RANGES STANDARD [...] --------- - ------ CBC with platelet count ...[[id number]]AbnormalFinal result Please view results for these tests on the individual orders. after 10/04/2016
[2017-10-05] MEDS ORDERED: DIPHTH/TETANUS/ACEL. PERTUSSIS 0.5 ML SYR IM ONE (08:30)
--- NOTE | 2017-10-05 09:08 | Diagnostic Imaging Report ---
PROCEDURE:FINGER RIGHT TECHNIQUE:Portable AP, lateral and oblique views right finger INDICATION:Stone by stingray. COMPARISON:None. FINDINGS: The index finger and regional skeleton are intact in anatomic alignment. No conspicuous foreign bodies. CONCLUSION: No acute abnormality. Dictated by: Jarrett Rader M.D. on 10/05/2017 at 9:10 Electronically approved by: Jarrett Rader M.D. on 10/05/2017 at 9:10
== END 2017-10-05 09:30 | disposition home or self-care (01) ==
LOC: ER 08:24
DX: S61.230A Puncture wound without foreign body of right index finger without damage to nail, initial encounter (principal); T63.511A Toxic effect of contact with stingray, accidental (unintentional), initial encounter; I10 Essential (primary) hypertension
CPT/HCPCS: 99283

== ENCOUNTER 2017-10-14 17:44 | Emergency (ER) | payer MEDICARE ==
[~2017-10-14] VITALS: Ht 175.3 cm; Wt 68.0 kg
--- OUTSIDE RECORDS SUMMARY | 2017-10-14 17:48 | XMS REPORT | Continuity of Care Document ---
Author Author [facility] Organization [facility] Address [address] [place] [address] Phone Unavailable Care Team Providers Care Maxillofacial Surgeon Name Role Phone SPENSER HORNER MD PCP Insurance Providers Guarantor Troy Escalona Jr Address [address] [place] [address] Email [email or web address] Payer [facility] Policy Number [id number] Subscriber's Name Troy Escalona Jr Relationship 18 Self / Same As Patient Group Number PLANC Group Name RETIRED Effective Date 17 Payer Medicare A & B Policy Number [id number] Subscriber's Name Troy Escalona Jr Relationship 18 Self / Same As Patient Group Number [id number] Group Name RETIRED Effective Date 98 Advance Directives Directive Response Recorded Date/Time Does the patient have an advance directive? No 07/20/17 3:00pm If yes, is advance directive on file with [facility]? No 01/29/17 12:18pm If not on file with [facility] will patient provide a copy? No 10/05/17 8:19am Do you have a Directive to Physician? No 10/05/17 8:19am Do you have a Medical Power of Philatelic Consultant? No 10/05/17 8:19am Do you have an out of hospital Do Not Resuscitate Order? No 10/05/17 8:19am Do you have any special needs we should be aware of? No 10/05/17 8:19am Do you have a support person here with you today? Yes 10/05/17 8:20am Did patient receive Notice of Privacy Practices? Yes 10/05/17 8:20am Did patient receive patient rights and responsibilities? Yes 10/05/17 8:20am Problems Medical Problem Onset Date Status TIA [...] No 07/18/2017 10:34am Not Applicable Not Applicable Smoking Status Start Date Stop Date Never Smoker Hospital Discharge Instructions No hospital discharge instruction information available. Plan of Care Discharge Date 10/05/17 9:30am Disposition HOME, SELF-CARE Condition at Discharge Stable Instructions/Education Provided Stingray Stings Forms Provided Work/School Excuse Prescriptions See Medication Section Referrals SPENSER HORNER MD Address: [address] [place] [id number] Additional Instructions/Education Stop current antibiotic. Take Levaquin as prescribed. You did receive your TDap today in ER. This is good for 10 yrs. Functional Status No functional status information available. Allergies, Adverse Reactions, Alerts Allergen Type Severity [...] 07/21/2017 4:41am Height 5 ft 9 in 10/05/2017 8:15am Weight 150 lb 10/05/2017 8:15am Body Mass Index 22.2 kg/m^2 10/05/2017 8:15am Results Laboratory Results Test Name Result Units Flags Reference Collection Date/Time Result Date/ Time Comments White Blood Count 6.10 x10e3/uL 4.8-10.8 07/18/2017 [...] 3.9-4.7 07/18/2017 10:37am 07/18/2017 11: 00am Procedures Procedure Status Date Provider(s) L HRT ARTERY/VENTRICLE ANGIO Completed 07/20/17 COURTNEY ZHENG MD Completed 07/20/17 COURTNEY ZHENG MD Encounters Encounter Location Arrival/Admit Date Discharge/Depart Date Attending Provider Departed Emergency Room [facility] 10/05/17 8:24am 9:30am KRISTIN DE LA FUENTE DO Discharged Inpatient (obs) [facility] 07/20/17 2:23pm 02/28 7:17am COURTNEY ZHENG MD Discharged Recurring [facility] 02/13/17 9:54am 03/13/17 11:59pm CHAGO CM MD Discharged Recurring [facility] 01/31/17 8:48am 02/10/17 11:59pm CHAGO CM MD Departed Emergency [facility] 12/28/16 9:36am 11:16am TRACY SOLIZ MD
--- OUTSIDE RECORDS SUMMARY | 2017-10-14 17:48 | XMS REPORT | Clinical Summary ---
Author Author BEVERLY SisteerSt. 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);Bilateral carotid artery stenosis;Other hyperlipidemia 06/29/2017 Anesthesia Vasu Vinson MD Event 06/29/2017 Procedure Pass 06/29/2017 Surgery Antonio Mcdonough, ENDARTERECTOMY,CAROTID MD 06/28/2017 Orders Only Transplant Jennifer Alvarez RN after 10/13/2016 Social History Tobacco Use Types Packs/Day Years Used Date Never Smoker Smokeless Tobacco: Never Used Alcohol Use Drinks/Week oz/Week Comments Yes Sex Assigned at Date Recorded Not on file Last Filed Vital Signs Vital Sign Reading Time Taken Blood Pressure 117/56 07/01/2017 12:00 PM RN FAMILY Pulse 71 07/01/2017 12:00 PM RN FAMILY Temperature 37 C (98.6 F) 07/01/2017 12:00 PM RN FAMILY Respiratory Rate 18 07/01/2017 12:00 PM RN FAMILY Oxygen Saturation 96% 07/01/2017 12:00 PM RN FAMILY Inhaled Oxygen - - Concentration Weight 65.1 kg (143 lb 8 oz) 06/30/2017 4:26 AM RN FAMILY Height 175.3 cm (5' 9") 06/29/2017 5:42 AM RN FAMILY Body Mass Index 21.19 06/30/2017 4:26 AM RN FAMILY Plan of Treatment Not on file Implants Implanted Type Area Nicker And Breaker Device Expiration Model / Identifier Date Serial / Lot Grft Hemshld Dbl Roberto 0.3x3.0in Graft/Patc Right: GETINGE 07/11/2021 [id number] - [id number] h Neck IND:MAQUET:CV 090 / Implanted: Qty: 1 on 06/29/2017 by [id number] Antonio Mcdonough MD / [id number] Procedures Procedure Name Priority Date/Time Associated Diagnosis Comments ENDARTERECTOMY,CAROTID 06/29/2017 Stenosis of carotid 8:02 AM RN FAMILY artery, unspecified laterality Special Needs (NEURO-MON ITORING:EE G) after 10/13/2016 Results * RHYTHM STRIP - SCAN (07/19/2017 [...] WBC Specimen Performing Laboratory [facility], [place] [address] * Magnesium (07/01/2017 5:37 AM) Only the most recent of 2 results within the time period is included. Component Value Ref Range Magnesium 1.8 1.6 - 2.6 mg/dL Specimen Performing Laboratory [facility], [place] [address] * Basic Metabolic Panel (07/01/2017 5:37 AM) [...] PATIENTS. Specimen Performing Laboratory [facility], [place] [address] * TRANSFUSION SERVICE REPORT - SCAN (06/30/2017 5:41 PM) * POC-Glucose meter (06/29/2017 9:33 PM) Component Value Ref Range POC-Glucose Meter 127 (H)Comment: TESTED AT [address] 70 - 110 mg /dL [place] [address] Specimen [place] [address] * SHORT LATENCY SEP ALL LIMBS (06/29/2017 10:30 AM) Specimen Performing Laboratory GE RIS Narrative INTRAOPERATIVE MONITORING REPORT Patient Name:Troy Escalona [facility] Surgery Date: 2017 [place] S/N: [id number] Monitoring began at8:10 and ended at 10:30 [...] External Ris In - 07/02/2017 5:56 PM RN FAMILY INTRAOPERATIVE MONITORING REPORT Patient Name: Troy Escalona [facility] Surgery Date: June 29, 2017 [place] S/N: [id number] Monitoring began at 8:10 and ended at [...] Range Case Report Surgical Pathology Report Case: [id number] Authorizing Provider: Antonio Mcdonough, Collected: 06/29/2017 0937 Ordering Location: [facility] Received: 06/29/2017 1039 PERIOPERATIVE SERVICES Pathologist: Jacob Ochoa MD Specimen: Plaque, right carotid plaque DIAGNOSIS ARTERY, RIGHT CAROTID, ENDARTERECTOMY: CALCIFIC ATHEROSCLEROTIC PLAQUE WITH FOCAL BONY METAPLASIA Signing Pathologist Direct Phone Line: [phone] CPT Code(s) 48100; 96010 CLINICAL HISTORY Stenosis of carotid artery SPECIMEN SOURCE Right carotid plaque GROSS DESCRIPTION In saline labeled "plaque", description "right carotid plaque" are four irregular barboza-white to yellow-snyder rubbery portions of calcified fibrous tissue measuring 4.0 x 2.3 x 0.5 cm in aggregate. [employer] sections are submitted in cassette A1 for decalcification. DB/pl MICROSCOPIC DESCRIPTION Performed Specimen Performing Laboratory [place] [address] * Electrocardiogram, 12-lead (06/29/2017 7:33 AM) Specimen Performing Laboratory GE MUSE Narrative Ventricular Rate 58 BPM Atrial Rate 58 BPM P-R Interval 176 ms QRS Duration 86 ms Q-T Interval 430 ms QTC Calculation(Bazett) 422 ms P Ovid 77 degrees R Ovid -19 degrees T Ovid 14 degrees Sinus bradycardia Possible Anterior infarct , age undetermined Abnormal ECG No previous ECGs available Confirmed by MD SPEARS STEPHANIE A ([id number]) on 06/30/2017 8:02:14 PM Procedure Note Interface, External Ris In - 06/30/2017 8:02 PM RN FAMILY Ventricular Rate 58 BPM Atrial Rate 58 BPM P-R Interval 176 ms QRS Duration 86 ms Q-T Interval 430 ms QTC Calculation(Bazett) 422 ms P Ovid 77 degrees R Ovid -19 degrees T Ovid 14 degrees Sinus bradycardia Possible Anterior infarct , age undetermined Abnormal ECG No previous ECGs available Confirmed by MD SPEARS STEPHANIE A ([id number]) on 06/30/2017 8:02:14 PM * XR chest 1 view portable / bedside (06/29/2017 7:12 AM) Specimen Performing Laboratory GE RIS Narrative FINAL REPORT Chest one view Discussion: There are degenerative spine and shoulder changes. Lungs clear. Heart size normal. No effusion or pneumothorax. Signed: Michelle Guerrero MD Report Verified Date/Time:06/29/2017 07:29:07 Reading Location: [facility] Radiology Reading Room Procedure Note Interface, External Ris In - 06/29/2017 7:31 AM RN FAMILY FINAL REPORT Chest one view Discussion: There are degenerative spine and shoulder changes. Lungs clear. Heart size normal. No effusion or pneumothorax. Signed: Michelle Guerrero MD Report Verified Date/Time: 06/29/2017 07:29:07 Reading Location: [facility] Radiology Reading Room * Type and screen, automated (06/29/2017 6:18 AM) Component Value Ref Range ABO/RH AUTOMATED (BEAKER) A NEGATIVE Ab Scrn NEGATIVE Specimen Performing Laboratory Blood [facility] [address] [address] * CBC with platelet count + automated [...] 1 % Granulocytes-Relative Specimen Performing Laboratory Blood [address] [address] * Prothrombin time/INR (06/29/2017 6:18 AM) Component Value Ref Range Protime 14.4 11.7 - 14.7 seconds INR 1.1 <=5.9 Specimen Performing Laboratory Blood [address] [address] Narrative RECOMMENDED COUMADIN/WARFARIN INR THERAPY RANGES STANDARD [...] --------- - ------ CBC with platelet count ...[[id number]]AbnormalFinal result Please view results for these tests on the individual orders. after 10/13/2016
== END 2017-10-14 19:00 | disposition left against medical advice (07) ==
LOC: ER 17:44
DX: Z48.00 Encounter for change or removal of nonsurgical wound dressing (principal)

== ENCOUNTER 2020-07-24 17:24 | Emergency (ER) | payer MEDICARE ==
[~2020-07-24] VITALS: Ht 175.3 cm; Wt 68.0 kg
[2020-07-24 18:01] LABS: BASOPHILS # (AUTO) 0.1 (0.0-0.1); EOSINOPHILS # (AUTO) 0.1 (0.0-0.4); EOSINOPHILS % 1.7 % (0.0-6.0); HEMATOCRIT 34.6 % (38.2-49.6); HEMOGLOBIN 11.3 g/dL (14.0-18.0); LYMPHOCYTES # (AUTO) 1.3 (1.0-3.2); MEAN CORPUSCULAR HEMOGLOBIN 30.9 pg (28-32); MEAN CORPUSCULAR HGB CONC 32.7 g/dL (31-35); MEAN CORPUSCULAR VOLUME 94.5 fL (81-99); MONOCYTES # (AUTO) 0.6 (0.2-0.8); MONOCYTES % 9.9 % (4.4-11.3); NEUTROPHILS # (AUTO) 3.8 (2.1-6.9); NEUTROPHILS % 65.2 % (38.7-80.0); PLATELET COUNT 209 x10e3/uL (140-360); RED BLOOD COUNT 3.66 x10e6/uL (4.3-5.7); RED CELL DISTRIBUTION WIDTH 13.5 % (11.7-14.4)
[2020-07-24 18:02] LABS: INR 1.85; PROTHROMBIN TIME 22.8 seconds (11.9-14.5)
[2020-07-24 18:09] LABS: ALBUMIN 3.7 g/dL (3.5-5.0); ALBUMIN/GLOBULIN RATIO 1.2 (0.8-2.0); ANION GAP 12.3 mmol/L (8-16); CALCIUM 8.1 mg/dL (8.4-10.2); CREATININE, SERUM 1.37 mg/dL (0.72-1.25); POTASSIUM 4.3 mmol/L (3.5-5.1)
[2020-07-24 18:11] LABS: CLARITY,URINE HAZY (CLEAR); COLOR,URINE RED (YELLOW); KETONES,URINE NEGATIVE (NEGATIVE); LEUKOCYTE ESTERASE ,URINE NEGATIVE (NEGATIVE); NITRITE,URINE NEGATIVE (NEGATIVE); PROTEIN,URINE DIPSTICK 1+ (NEGATIVE); URINE UROBILINOGEN 0.2 mg/dL (0.2 - 1)
[2020-07-24 18:12] LABS: BACTERIA,URINE FEW /HPF; EPITHELIAL CELLS,URINE FEW /LPF; RBC,URINE >50 /HPF (0-5)
[2020-07-24] MEDS ORDERED: CEPHALEXIN500 MG PO (18:25)
[2020-07-24 18:51] VITALS: BP 202/84
== END 2020-07-24 18:53 | disposition home or self-care (01) ==
LOC: ER 17:30
DX: R31.9 Hematuria, unspecified (principal); I10 Essential (primary) hypertension; E78.5 Hyperlipidemia, unspecified; Z86.73 Personal history of transient ischemic attack (TIA), and cerebral infarction without residual deficits; Z95.5 Presence of coronary angioplasty implant and graft
CPT/HCPCS: 36415; 80053; 81001; 85025; 85610; 87086; 99284

== ENCOUNTER → 2020-08-26 | Outpatient (CLI) | payer MEDICARE ==
[~2020-08-26] MED LIST changes: +CEPHALEXIN500 MG PO; +IOPAMIDOL 370 MG/ML 200 ML INFUS..BTL INJ ONE; +SODIUM CHLORIDE 0.9% 250ML 250 ML ONE; +SODIUM CHLORIDE 0.9% 500ML 500 ML ONE
[2020-08-26 08:14] LABS: CREATININE, SERUM 1.46 mg/dL (0.72-1.25)
== END ==
LOC: CT 07:33
PROVIDERS: ATTEND Urology
DX: R31.9 Hematuria, unspecified (principal)
CPT/HCPCS: 36415; 74178; 82565; 84520; 96360; J7040; J7050; Q9967